=== PATIENT | female | born 1995 | race African-American/Black ===

== ENCOUNTER 2018-04-15 16:39 | Emergency (ER) | payer OTHER ==
[2018-04-15 16:51] VITALS: BP 105/67; PULSE 87; TEMP 98.5; BMI 20.8
--- NOTE | 2018-04-15 16:55 | PDOC ---
Attending Attestation - Resident Resident Name: Pietro Riddle - ED Attending Attestation I have performed the following: I have examined & evaluated the patient, The case was reviewed & discussed with the resident, I agree w/resident's findings & plan, Exceptions are as noted - HPI HPI: 04/15/18 16:56 22y F no pmhx presents with nasal congestion, cough, headache and a tickle in her throat for several days. no associated fever/chills, diaphoresis, hull, sob, cp, abd pain, n/v, leg swelling, hemptysis. sx improves with nyquil no recent travel or known sick contacts. pt notes she saw something white when she looked in a mirror in her throat yesterday and was concerned it might be an nfection. pt toleratin goral intake dnies recent travel - Physicial Exam PE: 04/15/18 17:13 GENERAL: The patient is awake, alert, and fully oriented, Nontoxic - in no acute distress. HEAD: Normocephalic, atraumatic. EYES: extraocular movements intact, sclera anicteric, conjunctiva clear. ENT: Normal voice, Moist mucous membranes, posterior paharynx pink w/o exudates , there is a whitish mass on the L tonsil, no sigificant erytheam tonsils/soft palate is symmetric, not ful lappaering, TMs non erytheamdous. NECK: Normal range of motion, supple, no lympadonapathy. LUNGS: Breath sounds equal, clear to auscultation bilaterally. No wheezes, no rhonchi, no rales. HEART: Regular rate and rhythm, normal S1 and S2 without murmur, rub or gallop. ABDOMEN: Soft, nontender, normoactive bowel sounds. No guarding, no rebound. No CVA tenderness EXTREMITIES: Normal range of motion, NEUROLOGICAL: No facial assymetry, Normal speech, moving all 4 ext spnoatneusly and symmetrically PSYCH: Normal mood, normal affect. SKIN: Warm, Dry, normal turgor, - Medical Decision Making 04/15/18 17:15 suspect uri whitish mass appears to be a tonsil stone. no signs of erythema/inflmamation present supportive care at home will swab for strep, pmd fu return predautions were discussed I discussed the physical exam findings, ancillary test results and final diagnoses with the patient. I answered all of the patient's questions. The patient was satisfied with the care received and felt comfortable with the discharge plan and treatment plan. The patient will call their primary care physician within 24 hours to arrange follow-up and will return to the Emergency Department with any new, persistent or worsening symptoms.
[2018-04-15] MEDS ORDERED: ACETAMINOPHEN 325 MG TABLET (FP) PO ONE (16:56)
[2018-04-15] MEDS ORDERED: guaiFENesin 600 MG TABLET.ER (FP) PO ONE ×2 (16:56→17:00)
[2018-04-15] MEDS ORDERED: ACETAMINOPHEN 325 MG TABLET (FP) ONE (16:57)
--- NOTE | 2018-04-15 17:02 | PDOC ---
History of Present Illness - General Chief Complaint: Sore Throat Stated Complaint: sore throat Time Seen by Provider: 04/15/18 16:45 History Source: Patient Exam Limitations: No Limitations - History of Present Illness Initial Comments: 04/15/18 16:58 The patient is a 22F with no PMH who presents with 4 days of cough, runny nose, congestion, and scratchy throat. She denies fever, chills, nausea, vomiting, diarrhea, muscle aches, and sick contacts. She states that she takes nyquil at night and this helps her but she takes nothing during the day time. She denies decreased PO intake. Past History - Past Medical History Allergies/Adverse Reactions: Allergies Allergy/AdvReac Type Severity Reaction Status Date / Time No Known Allergies Allergy Verified 04/15/18 16:47 Home Medications: Ambulatory Orders NK [No Known Home Medication] 04/15/18 COPD: No Other medical history: pt denies - Suicide/Smoking/Psychosocial Hx Smoking History: Never smoked Hx Alcohol Use: No Drug/Substance Use Hx: No Review of Systems - Review of Systems Able to Perform ROS?: Yes Is the patient limited U[place]bek proficient: No Constitutional: No: Chills, Fever HEENTM: Yes: Nose Congestion, Throat Pain. No: Double Vision, Ear Discharge, Throat Swelling, Difficulty Swallowing Respiratory: Yes: Cough. No: Shortness of Breath ABD/GI: No: Nausea, Vomiting Musculoskeletal: No: Muscle Pain, Muscle Weakness Neurological: Yes: Headache. No: Numbness, Tingling, Weakness *Physical Exam - Vital Signs Last Vital Signs Temp Pulse Resp BP Pulse Ox 98.5 F 87 18 105/67 100 04/15/18 16:40 04/15/18 16:40 04/15/18 16:40 04/15/18 16:40 04/15/18 16:40 - Physical Exam General Appearance: Yes: Nourished, Appropriately Dressed. No: Apparent Distress HEENT: positive: Normal Voice, Rhinorrhea, Hearing Grossly Normal. negative: Tonsillar Exudate, Tonsillar Erythema, Nasal Congestion, Sinus Tenderness Neck: positive: Trachea midline. negative: Lymphadenopathy (R), Lymphadenopathy (L) Respiratory/Chest: positive: Lungs Clear, Normal Breath Sounds Cardiovascular: positive: Regular Rhythm, Regular Rate, S1, S2 Gastrointestinal/Abdominal: positive: Flat, Soft. negative: Tender Extremity: positive: Normal Inspection, Normal Range of Motion Integumentary: positive: Normal Color, Dry, Warm Moderate Sedation - Procedure Monitoring Vital Signs: Procedure Monitoring Vital Signs Temperature 98.5 F 04/15/18 16:40 Pulse Rate 87 04/15/18 16:40 Respiratory Rate 18 04/15/18 16:40 Blood Pressure 105/67 04/15/18 16:40 O2 Sat by Pulse Oximetry (%) 100 04/15/18 16:40 Medical Decision Making - Medical Decision Making 04/15/18 16:59 The patient is a 22F with no PMH who presents with viral URI symptoms. Will treat symptomatically and give PCP f/u. 04/15/18 17:42 Pt expressing frustration for waiting for exam and "only getting tylenol" for her viral URI. Strep swab sent and negative. *DC/Admit/Observation/Transfer Diagnosis at time of Disposition: Viral URI with cough - Discharge Dispostion Disposition: HOME Condition at time of disposition: Stable Decision to Admit order: No - Referrals - Patient Instructions Printed Discharge Instructions: Common Cold (Alternative Therapy) Additional Instructions: Please follow up with your primary care physician in 2-3 days. Please take tylenol and/or guafinesin (mucinex) or pseudoephedrine (sudafed) for your symptoms. Please return to the ER if you have any signs or symptoms of chest pain, shortness of breath, uncontrollable fever, chills, nausea, vomiting, numbness, tingling, or weakness in any part of your body, changes in vision, or slurred speech. Please return to the ER if symptoms persist, worsen, or new symptoms arise. - Post Discharge Activity
[2018-04-15] MEDS ORDERED: guaiFENesin 600 MG TABLET.ER (FP) PO SCH (22:00)
== END 2018-04-15 17:46 | disposition home or self-care (01) ==
LOC: FER 16:39
DX: J06.9 Acute upper respiratory infection, unspecified (principal); R05 Cough
CPT/HCPCS: 87070; 87880; 99281-25

== ENCOUNTER 2021-10-30 18:25 | Emergency (ER) | payer OTHER ==
[2021-10-30 18:49] VITALS: BP 100/65; PULSE 84; RESP 18; TEMP 98; BMI 19.3
[2021-10-30] MEDS ORDERED: IBUPROFEN 600 MG TABLET (FP) PO ONE ×2 (20:11→20:25)
== END 2021-10-30 20:36 | disposition home or self-care (01) ==
LOC: JERFT 18:25
DX: M79.675 Pain in left toe(s) (principal); W01.0XXA Fall on same level from slipping, tripping and stumbling without subsequent striking against object, initial encounter
CPT/HCPCS: 73660-TC-LT-FY; 99283-25

== ENCOUNTER 2022-02-10 09:20 | Emergency (ER) | payer OTHER ==
[2022-02-10 09:43] VITALS: BP 105/72; PULSE 68; RESP 20; TEMP 98.1; BMI 18.3
== END 2022-02-10 10:04 | disposition home or self-care (01) ==
LOC: JERFT 09:20
DX: H60.12 Cellulitis of left external ear (principal)
CPT/HCPCS: 99281-25

== ENCOUNTER 2023-10-27 16:14 | Emergency (ER) | payer SELFPAY ==
[2023-10-27 16:23] VITALS: BP 109/69; PULSE 89; RESP 20; TEMP 98.8; BMI 20.1
[2023-10-27] MEDS ORDERED: DEXAMETHASONE SOD PHOSPHATE 10 MG/1 ML VIAL ONE (19:33)
[2023-10-27] MEDS: DEXAMETHASONE SOD PHOSPHATE 10 MG/1 ML VIAL PO ONE (19:39)
== END 2023-10-27 19:47 | disposition home or self-care (01) ==
LOC: JERFT 16:14
DX: J03.90 Acute tonsillitis, unspecified (principal); R51.9 Headache, unspecified
CPT/HCPCS: 36415; 87651; 99284-25; J1100